=== PATIENT | female | born 1985 | race African-American/Black ===

== ENCOUNTER 2019-10-19 10:16 | Emergency (ER) | payer MEDICARE ==
[~2019-10-19] VITALS: Ht 182.9 cm; Wt 163.0 kg
[2019-10-19 13:51] VITALS: BP 119/68
== END 2019-10-19 15:23 | disposition left against medical advice (07) ==
LOC: ER 10:16
DX: Z53.21 Procedure and treatment not carried out due to patient leaving prior to being seen by health care provider (principal)